=== PATIENT | female | born 1940 | race Caucasian/White ===

== ENCOUNTER 2025-07-11 07:19 | Day surgery (SDC) | payer MEDICARE ==
[2025-07-09 14:33] LABS: Hematocrit 23.5 % (36.0-46.0); Hemoglobin 7.7 g/dL (12.2-16.2)
[~2025-07-11] VITALS: Ht 162.6 cm; Wt 68.0 kg
[2025-07-11] VITALS (7 sets, daily range): BP systolic 136–162; BP diastolic 35–89; PULSE 54–72; RESP 16–20; TEMP 97.3–97.6; O2SAT 96–99
[~2025-07-11 07:19] MED LIST: AMIO200T33 PO; COEN30CA10 PO; EZET10TA22 PO; FAMO-12 PO; FERR1TAB36 PO; GEMF-66 PO; HYDRX10T PO; LISI10TA34 PO; ROSU10TA16 PO; ZOLP10TA PO
== END 2025-07-11 10:51 | disposition home or self-care (01) ==
LOC: CATH 07:19
PROVIDERS: ATTEND Specialist
DX: D64.9 Anemia, unspecified (principal); I10 Essential (primary) hypertension; E78.00 Pure hypercholesterolemia, unspecified
CPT/HCPCS: 36415; 36430; 85014; 85018; 86850; 86900; 86901; 86920; P9016